=== PATIENT | male | born 1960 | race Caucasian/White ===

== ENCOUNTER 2017-10-05 08:32 | Outpatient (CLI) | payer OTHER ==
[~2017-10-05] VITALS: Ht 177.8 cm; Wt 122.5 kg
[2017-10-05] VITALS (11 sets, daily range): BP systolic 107–181; BP diastolic 65–92
[2017-10-05] MEDS ORDERED: IMDUR 30 MG TAB30 M1 PO (08:48)
[2017-10-05] MEDS ORDERED: AMLODIPINE BESY10 MG PO (08:49)
[2017-10-05] MEDS ORDERED: PLAVIX 75 MG TA75 M1 PO (08:50)
[2017-10-05] MEDS ORDERED: PRINIVIL20 MG PO (08:51)
[2017-10-05] MEDS ORDERED: PROTONIX40 M1 PO (08:53)
[2017-10-05] MEDS ORDERED: LIPITOR40 MG PO (08:54)
[2017-10-05] MEDS ORDERED: ALLOPURINOL 10100 M1 PO (08:54)
[2017-10-05] MEDS ORDERED: UNICOMPLEX M TA1 TA1 PO (08:55)
[2017-10-05] MEDS ORDERED: ASPIRIN325 PO (08:55)
[2017-10-05 09:11] LABS: HEMATOCRIT 44.2 % (42.0-52.0); HEMOGLOBIN 14.3 gm/dL (14.0-18.0); MCH 27.3 pg (26.0-34.0); MCHC 32.4 g/dL (28.0-37.0); MCV 84.3 fL (80.0-100.0); MPV 9.2 fl. (7.2-11.1); RBC 5.25 mil/uL (4.50-6.00); RDW-CV 15.2 % (10.5-14.5); WBC 4.6 thou/uL (4.0-11.0)
[2017-10-05 09:25] LABS: ANION GAP 7 mmol/L (7-16); BUN 17 mg/dL (7-18); CALCIUM 8.8 mg/dL (8.5-10.1); CHLORIDE 104 mmol/L (98-107); CO2 30 mmol/L (21-32); GLUCOSE 129 mg/dL (70-99); POTASSIUM 3.7 mmol/L (3.5-5.1); SODIUM 141 mmol/L (136-145)
[2017-10-05 09:28] LABS: PROTIME 10.2 Seconds (9.20-11.50)
[2017-10-05 09:29] LABS: ALBUMIN 3.6 g/dL (3.4-5.0); ALKALINE PHOSPHATASE 101 U/L (46-116); CHOLESTEROL 147 mg/dL (<200); HDL CHOLESTEROL 41 mg/dL (>40); LDL CHOLESTEROL 79 mg/dL (<100); SGOT 25 U/L (15-37); SGPT 39 U/L (30-65); TC:HDL 3.6 Ratio (Not establshd); TOTAL BILIRUBIN 0.7 mg/dL (<0.1-1.0); TOTAL PROTEIN 7.4 g/dL (6.4-8.2); TRIGLYCERIDE 136 mg/dL (<150); VLDL 27 mg/dL (<40)
[2017-10-05 09:32] LABS: SERUM ASSESSMENT Clear
--- NOTE | 2017-10-05 19:35 | EKG ---
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: [facility] : 1960 Requested By: Edi Leblanc Order Number: [id number] Celso MD: Oscar Thomas Measurements Intervals [place] Rate: 50 P: 28 OR: 197 QRS: 4 QRSD: 154 T: -42 QT: 447 QTc: 408 Interpretive Statements Sinus rhythm Right bundle branch block Inferior infarct, age indeterminate No previous ECG available for comparison Electronically Signed On 10-05-2017 19:35:45 CDT by Oscar Thomas [email or web address] <ELECTRONICALLY SIGNED> By: Oscar Thomas MD, [facility] 10/05/17 1935 0852 0852 Oscar Thomas MD, FACC /EPI
--- NOTE | 2017-10-10 11:54 | CARD ---
[address] [address] CARDIAC CATH REPORT Name: ROBB JOAQUIN Dhruv Room: [address]#: [id number] Admission: 10/05/17 Attend Phys: Edi Leblanc MD, Discharge: Date of : 60 Report #: [id number] THIS REPORT FOR: //name// APPROVED REPORT Study performed: 10/05/2017 10:14:08 Patient Details Patient Status: Out-Patient Room #: The patient is a 57 year-old male Event Personnel Edi Leblanc Armoring Machine Operator, Lexie Abbott Felt Hat Mellowing Machine Operator, Jose Domingo (R) Monitor, Mariah Schilling RTR Scrub Procedures Performed Left Heart Cath w Coronaries Indication Chest pain Risk Factors Obesity, Family History, Hypercholesterolemia, Hypertension Procedure Narrative The patient was brought electively to the Cardiac Catheterization Laboratory and was prepped and draped in a sterile manner. The right femoral was infiltrated with 2% Lidocaine subcutaneous anesthesia. A [place] 6 FR sheath was inserted into the Right Femoral Artery. Coronary angiography was performed using coronary diagnostic catheters. The right coronary system was accessed and visualized with a Diagnostic JR 4 catheter. The left coronary system was accessed and visualized with a Diagnostic JL 4 catheter. The left ventricle was accessed and visualized with a Diagnostic Straight Pigtail catheter. Left ventricular/Aortic Valve gradient assessed via catheter pullback. Pre-demployment femoral angiogram was performed . Closure device was deployed with a 6 Fr Mynx. The patient tolerated the procedure well and there were no complications associated with the procedure. There was no hematoma. Intraoperative Conscious Sedation Sedation start time: 11:08 Case end Time: 11:46 Fentanyl 25 mcg Versed 2 [place] [address] CARDIAC CATH REPORT Name: ROBB JOAQUIN Dhruv Room: [address]#: [id number] Admission: 10/05/17 Attend Phys: Edi Leblanc MD, Discharge: Date of : 60 Report #: [id number] Fluoro Time: 3.2 minutes Dose: DAP 10.237 cGycm2 562 mGy Contrast Type and Amount: Visipaque 145 ml Coronary Angiography The patient's coronary anatomy is right dominant. Diagnostic Cath Left Main 0% narrowing LAD 30% mid vessel narrowing with 40% proximal first diagonal narrowing Circumflex 40% narrowing of the midportion of the first marginal branch of the nondominant circumflex Right Coronary 30% mid vessel narrowing with widely patent mid and distal right coronary stents Left Ventriculography The left ventricle is normal in size with contractility. The left ventricular ejection fraction is estimated to be 45%. Left ventricular wall motion abnormalities are present. There is no mitral insufficiency. Inferobasilar akinesis is noted Hemodynamics The aortic pressure is 148/67 mmHg with a mean of 93 mmHg. The left ventricular pressure is 153/1 mmHg with a mean of mmHg. The left ventricular end diastolic pressure is 15 mmHg. Conclusion #1 moderate atherosclerotic coronary artery disease characterized by the following: A 30% mid LAD narrowing with 40% proximal first diagonal narrowing B nondominant circumflex with 40% mid first marginal narrowing C dominant right coronary artery 30% mid vessel narrowing and widely patent mid and distal right coronary stents #2 mild impairment in global left ventricular systolic function, estimated ejection fraction of 45% with inferobasilar akinesis #3 normal left-sided hemodynamics study Recommendations Aggressive [place] [address] CARDIAC CATH REPORT Name: ROBB JOAQUIN Room: [address] M..#: [id number] Admission: 10/05/17 Attend Phys: Edi Leblanc MD, Discharge: Date of : 60 Report #: [id number] Weight Loss Reduction Program Diagnostic Cath Approved by: Edi Leblanc MD Date/Time: 10/10/17 and 1153 hrs. <ELECTRONICALLY SIGNED> By: Edi Leblanc MD, [facility] 10/10/17 1154 1154 1154Jocarloz Leblanc MD, FAC /INF
== END 2017-10-05 16:55 | disposition home or self-care (01) ==
LOC: M.CL 08:32 → M.TBA-CV 08:32 → M.CL 10:30 → M.TBA-CV 13:19 → M.CL 16:55
PROVIDERS: Internal Medicine
DX: I25.10 Atherosclerotic heart disease of native coronary artery without angina pectoris (principal); I25.5 Ischemic cardiomyopathy; I10 Essential (primary) hypertension; E78.00 Pure hypercholesterolemia, unspecified; E66.09 Other obesity due to excess calories; Z82.49 Family history of ischemic heart disease and other diseases of the circulatory system; Z79.899 Other long term (current) drug therapy; Z79.82 Long term (current) use of aspirin

== ENCOUNTER 2018-08-01 11:50 | Inpatient (IN) | payer OTHER ==
[~2018-08-01] VITALS: Ht 177.8 cm; Wt 118.8 kg
[~2018-08-01 11:50] MED LIST: ALLOPURINOL 10100 M1 PO; AMLODIPINE BESY10 MG PO; ASPIRIN325 PO; IMDUR 30 MG TAB30 M1 PO; LIPITOR40 MG PO; PLAVIX 75 MG TA75 M1 PO; PRINIVIL20 MG PO; PROTONIX40 M1 PO; UNICOMPLEX M TA1 TA1 PO
[2018-08-01] MEDS ORDERED: ALEVE220 MG PO (14:48)
[2018-08-01 16:00] VITALS: BP 123/63
[2018-08-01 17:27] LABS: CHOLESTEROL 142 mg/dL (<200); HDL CHOLESTEROL 41 mg/dL (>40); LDL CHOLESTEROL 82 mg/dL (<100); TC:HDL 3.5 Ratio (Not establshd); TRIGLYCERIDE 97 mg/dL (<150); VLDL 19 mg/dL (<40)
[2018-08-01 17:28] LABS: SERUM ASSESSMENT Clear
--- NOTE | 2018-08-01 17:29 | NUR ---
VSS, ASSUMED CARE OF PT FROM ER, ASSESSMESNT PERFORMED AND CHARTED, FALL PRECAUTIONS IN PLACE AND CALL LIGHT IN REACH, PT IS A&O4 AND UP AD MAYRA AND STATES PAIN IN LEFT CHEST, PT SAYS ITS 3 OUT OF 10, HE WAS TRACING AFIB ON MONITOR BUT NOW HAS CONVERTED TO SR AND I STOPPED CARDIZEM DRIP, PT GOAL IS TO REMAIN IN SR AND HAVE NO CHEST PAIN, WILL FOLLOW WITH PLAN OF CARE
[2018-08-01 19:00] VITALS: BP 136/70
[2018-08-01 23:59] VITALS: BP 136/68
[2018-08-02] VITALS (13 sets, daily range): BP systolic 104–167; BP diastolic 53–84
--- NOTE | 2018-08-02 06:36 | NUR ---
APPROX 0000 PT TROP LEVEL CRITICAL, PROVIDER NOTIFIED AND ORDERS RECIEVED. PT DENIES CHEST PAIN, NITRO HELD FOR DENIAL OF CHEST PAIN. SEE MAR. SEE CHARTING. VITALS WNL. HOURLY ROUNDING FOR SAFETY.
[2018-08-02 07:27] LABS: URINE BILIRUBIN NEGATIVE (Negative); URINE BLOOD NEGATIVE (Negative); URINE CLARITY CLEAR; URINE COLOR YELLOW; URINE GLUCOSE-RANDOM NEGATIVE (Negative); URINE KETONES TRACE (Negative); URINE LEUKOCYTES-REFLEX NEGATIVE (Negative); URINE NITRITE-REFLEX NEGATIVE (Negative); URINE PROTEIN TRACE (Negative); URINE SPECIFIC GRAVITY >= 1.030 (1.005-1.030); URINE UROBILINOGEN 0.2 E.U./dl (0.2-1.0)
--- NOTE | 2018-08-02 11:13 | NUR ---
MET WITH PT AND HIS MOTHER/ROSAMARIA TO DISCUSS HOME SITUATION/DC PLANNING. PT LIVES WITH MOTHER IN [place]. HE IS INDEPENDENT WITH ADLS, USES NO EQUIPMENT AND IS UNINSURED. HE DOES HAVE A DR THAT HE SEE, DR TRAN. PT STATES HE HAS BEEN ABLE TO AFFORD HIS MEDS SO FAR. GAVE COMMUNITY RESOURCES AND MADE AWARE [facility] WOULD BE CONTACTING HIM RE: FINANCIAL SCREEN AND ASSIST. PT DENIES OTHER DC NEEDS
[2018-08-02 11:16] LABS: HEMATOCRIT 38.6 % (42.0-52.0); HEMOGLOBIN 12.7 gm/dL (14.0-18.0); MCH 28.6 pg (26.0-34.0); MCHC 32.8 g/dL (28.0-37.0); MCV 87.1 fL (80.0-100.0); MPV 8.4 fl. (7.2-11.1); RBC 4.43 mil/uL (4.50-6.00); RDW-CV 14.6 % (10.5-14.5); WBC 4.2 thou/uL (4.0-11.0)
[2018-08-02 11:25] LABS: APTT 27.6 Seconds (25.0-31.3); INR 1.1; PROTIME 11.1 Seconds (9.20-11.50)
[2018-08-02 11:26] LABS: CALCIUM 8.3 mg/dL (8.5-10.1); CREATININE 1.1 mg/dL (0.6-1.3); POTASSIUM 3.4 mmol/L (3.5-5.1)
--- NOTE | 2018-08-02 12:45 | EKG ---
[place] [address] ELECTROCARDIOGRAM REPORT Name: ROBB JOAQUIN Room: [address] ADM IN ..#: [id number] Admission: 08/01/18 Attend Phys: Paul Mosqueda Discharge: Date of : 60 Report #: [id number] THIS REPORT FOR: //name// [facility] Test Date: 2018-08-01 Test Time: 16:27:28 Pat Name: ROBB JOAQUIN Department: Room: [address] Gender: M Gastroenterology Nurse: : 1960 Requested By: Doc Almodovar Order Number: [id number] Celso MD: Edi Leblanc Measurements Intervals [place] Rate: 46 P: 25 DC: 197 QRS: 8 QRSD: 114 T: 174 QT: 463 QTc: 405 Interpretive Statements Sinus bradycardia LVH with IVCD and secondary repol abnrm Inferior infarct, old Compared to ECG 10/05/2017 08:52:42 Intraventricular conduction delay now present Left ventricular hypertrophy now present Early repolarization now present Right bundle-branch block no longer present Myocardial infarct finding still present Electronically Signed On 08-02-2018 12:45:08 CDT by Edi Leblanc [email or web address] <ELECTRONICALLY SIGNED> By: Edi Leblanc MD, [facility] 08/02/18 1245 1627 1627 Edi Leblanc MD, FAC /EPI
--- NOTE | 2018-08-02 12:47 | EKG ---
[place] [address] ELECTROCARDIOGRAM REPORT Name: ROBB JOAQUIN Room: [address] ADM IN [facility].#: [id number] Admission: 08/01/18 Attend Phys: Paul Mosqueda Discharge: Date of : 60 Report #: [id number] THIS REPORT FOR: //name// [facility] Test Date: 2018-08-02 Test Time: 00:47:25 Pat Name: ROBB JOAQUIN Department: Room: [address] Gender: M Dimension Mill Worker: GILLES : 1960 Requested By: Ny Alan Order Number: [id number] Celso MD: Edi Leblanc Measurements Intervals [place] Rate: 46 P: 37 ND: 196 QRS: 11 QRSD: 121 T: 162 QT: 518 QTc: 454 Interpretive Statements Sinus bradycardia Nonspecific intraventricular conduction delay Inferior infarct, old Abnrm T, consider ischemia, anterolateral lds Compared to ECG 10/05/2017 08:52:42 Intraventricular conduction delay now present Possible ischemia now present Right bundle-branch block no longer present Myocardial infarct finding still present Electronically Signed On 08-02-2018 12:46:59 CDT by Edi Leblanc [email or web address] <ELECTRONICALLY SIGNED> By: Edi Leblanc MD, [facility] 08/02/18 1246 0047 0047 Edi Leblanc MD, FAC /EPI
[2018-08-02 13:07] LABS: GLYCOHEMOGLOBIN (HGB A1C) 6.3 % (4.8-5.6)
--- NOTE | 2018-08-02 14:45 | 2DMMODE ---
[place] [address] 2 D/M-MODE ECHOCARDIOGRAM Name: ROBB JOAQUIN Room: [address] IN [facility]#: [id number] Admission: 08/01/18 Attend Phys: Doc Almodovar Discharge: Date of : 60 Date of Service: 08/02/18 1445 Report #: [id number] THIS REPORT FOR: //name// APPROVED REPORT Study performed: 08/02/2018 10:24:35 EXAM: Comprehensive 2D, Doppler, and color-flow Echocardiogram Patient Location: In-Patient Room #: [facility] Status: routine BSA: 2.34 HR: 54 bpm BP: 162/83 mmHg Rhythm: NSR Other Information Study Quality: Good Indications Atrial Fibrillation Chest Pain 2D Dimensions IVSd: 14.15 (7-11mm) LVOT Diam: 20.96 (18-24mm) LVDd: 55.50 mm PWd: 13.02 (7-11mm) Ascending Ao: 33.04 (22-36mm) LVDs: 42.24 (25-40mm) Aortic Root: 34.08 mm Volumes Left Atrial Volume (Systole) LA ESV Index: 37.90 mL/m2 Aortic Valve AoV Peak Herb.: 1.62 m/s AO Peak Gr.: 10.45 mmHg LVOT Max P.80 mmHg AO Mean Gr.: 6.02 mmHg LVOT Mean P.40 mmHg LVOT Max V: 1.10 m/s AO V2 VTI: 37.97 cm LVOT Mean V: 0.71 m/s ERNESTO (VTI): 2.56 cm2 LVOT V1 VTI: 28.15 cm Mitral Valve E/A Ratio: 1.91 MV Decel. Time: 219.63 [place] [address] 2 D/M-MODE ECHOCARDIOGRAM Name: ROBB JOAQUIN Room: [address] IN [facility]#: [id number] Admission: 08/01/18 Attend Phys: Doc Almodovar Discharge: Date of : 60 Date of Service: 08/02/18 1445 Report #: [id number] MV E Max Herb.: 0.95 m/s MV PHT: 63.69 ms MVA (PHT): 3.45 cm2 TDI E/Lateral E': 9.50 E/Medial E': 11.88 Medial E' Herb.: 0.08 m/s Lateral E' Herb.: 0.10 m/s Pulmonary Valve PV Peak Herb.: 1.04 m/s PV Peak Gr.: 4.32 mmHg Left Ventricle The left ventricle is normal size. There is normal LV segmental wall motion. Mild to moderate concentric left ventricular hypertrophy. Left ventricular systolic function is normal. The left ventricular ejection fraction is within the normal range. LVEF is 50-55%. The left ventricular diastolic function is normal. Right Ventricle The right ventricle is normal size. The right ventricular systolic function is normal. Atria Left atrium is mildly dilated. The right atrium size is normal. Aortic Valve Mild aortic valve sclerosis. Trace aortic regurgitation. There is no aortic valvular stenosis. Mitral Valve The mitral valve is normal in structure. Trace mitral regurgitation. No evidence of mitral valve stenosis. Tricuspid Valve The tricuspid valve is normal in structure. Trace tricuspid regurgitation. Unable to assess PA pressure. Pulmonic Valve The pulmonary valve is normal in structure. Trace pulmonic regurgitation. Great Vessels The aortic root is normal in size. [place] [address] 2 D/M-MODE ECHOCARDIOGRAM Name: ROBB JOAQUIN Room: [address]#: [id number] Admission: 08/01/18 Attend Phys: Doc Almodovar Discharge: Date of : 60 Date of Service: 08/02/18 1445 Report #: [id number] Pericardium There is no pericardial effusion. <Conclusion> The left ventricle is normal size. Mild to moderate concentric left ventricular hypertrophy. Left ventricular systolic function is normal. The left ventricular ejection fraction is within the normal range. LVEF is 50-55%. The left ventricular diastolic function is normal. The right ventricle is normal size. Left atrium is mildly dilated. Mild aortic valve sclerosis. Trace aortic regurgitation. There is no aortic valvular stenosis. The mitral valve is normal in structure. Trace mitral regurgitation. The tricuspid valve is normal in structure. There is no pericardial effusion. There is normal LV segmental wall motion. <ELECTRONICALLY SIGNED> By: Edi Leblanc MD, [facility] 08/02/18 1445 1445 1445 Edi Leblanc MD, FACC /INF
--- NOTE | 2018-08-02 17:38 | EKG ---
[place] [address] ELECTROCARDIOGRAM REPORT Name: ROBB JOAQUIN Room: [address] ADM IN [facility].#: [id number] Admission: 08/01/18 Attend Phys: Paul Mosqueda Discharge: Date of : 60 Report #: [id number] THIS REPORT FOR: //name// [facility] Test Date: 2018-08-02 Test Time: 16:52:48 Pat Name: ROBB JOAQUIN Department: Room: [address] Gender: M Mallet Cutter: : 1960 Requested By: Edi Leblanc Order Number: [id number] Celso MD: Oscar Thomas Measurements Intervals [place] Rate: 47 P: 26 MN: 182 QRS: 9 QRSD: 120 T: 159 QT: 526 QTc: 465 Interpretive Statements Sinus bradycardia Probable LVH with secondary repol abnrm Inferior infarct, old Compared to ECG 08/02/2018 00:47:25 Intraventricular conduction delay no longer present Possible ischemia no longer present Myocardial infarct finding still present Electronically Signed On 08-02-2018 17:38:38 CDT by Oscar Thomas [email or web address] <ELECTRONICALLY SIGNED> By: Oscar Thomas MD, FACC 08/02/18 1738 1652 1652 Oscar Thomas MD, [facility] /EPI
--- NOTE | 2018-08-02 19:47 | NUR ---
RECEIVED REPORT. ASSUMED CARE OF PT AROUND 0730. PT A&O X4. VSS, PT BRADYCARDIC BUT ASYMPTOMATIC WITH BRADYCARDIA, PT STATES "40'S IS MY NORMAL". TEAM ASSEMBLER IN PLACE TRACING SB WITH NO CHANGES THIS SHIFT. AM ASSESSMENT AND VITALS COMPLETED CHARTED. IV INTACT AND INFUSING IVF. PT WENT FOR CARDIAC CATH AROUND 1445 AND RETURNED TO UNIT AROUND 1645. RIGHT GROIN SITE OOZING SMALL AMOUNT OF BLOOD INITIALLY, PRESSURE APPLIED. DR ARCE ACCESSED PT, NO NEW ORDEERS RECEIVED. POST CATH VITALS CHARTED. PT COMPLAINING OF RIGHT SHOULDER PAIN POST CATH. EKG OBTAINED, SR. CARDIOLOGY NOTIFIED, WAITING FOR CALL BACK. PT REFUSING MEDICATION FOR PAIN. PT NOT CLAMMY OR SWEATY. VSS. PT'S MOTHER AT BEDSIDE MOST OF SHIFT. PT TOLERATING DIET THIS EVENING, MOTHER ASSISTED WITH MEAL. PRABHAKAR IN PLACE UNTIL PT ABLE TO GET UP FROM POST CATH INSTRUCTED IMMOBILIZATION - ABLE TO GET UP AROUND 1030. URINE LIGHT YELLOW. PT CURRENTLY RESTING IN BED WATCHING TV. FALL PRECAUTIONS IN PLACE. CALL LIGHT IS WITHIN REACH. HOURLY ROUNDING PERFORMED.
[2018-08-03] VITALS (7 sets, daily range): BP systolic 157–170; BP diastolic 82–88
--- NOTE | 2018-08-03 04:55 | NUR ---
ASSUMED PT CARE AT 1915. PT ON BEDREST POST CARDIAC CATH. RIGHT GROIN SITE DRESSING MINIMAL SEROSANGUENEOUS DRAINAGE. PT C/O PAIN TO RIGHT SHOULDER. PRN PAIN MED ADMINSTERED AND PARTIALLY EFFECTIVE. OFF OF BEDREST AT 0. HOURLY ROUNDING COMPLETED. CALL LIGHT WITHIN REACH. DENIES CHEST PAIN THIS SHIFT.
[2018-08-03 05:11] LABS: HEMOGLOBIN 13.9 gm/dL (14.0-18.0); MCH 28.9 pg (26.0-34.0); MCV 87.4 fL (80.0-100.0); MPV 9.1 fl. (7.2-11.1); RBC 4.81 mil/uL (4.50-6.00); RDW-CV 14.7 % (10.5-14.5); WBC 8.3 thou/uL (4.0-11.0)
[2018-08-03 05:59] LABS: ALBUMIN 3.5 g/dL (3.4-5.0); CALCIUM 9.1 mg/dL (8.5-10.1); CREATININE 1.1 mg/dL (0.6-1.3); POTASSIUM 3.8 mmol/L (3.5-5.1); TOTAL BILIRUBIN 0.9 mg/dL (<0.1-1.0); TOTAL PROTEIN 7.3 g/dL (6.4-8.2)
[2018-08-03 06:08] LABS: TROPONIN-I LEVEL 0.75 ng/mL (<0.06)
--- NOTE | 2018-08-03 12:00 | NUR ---
VSS, ASSUMED CARE IN THE AM, ASSESSMENT PERFORMED AND CHARTED, FALL PRECAUTIONS IN PLACE AND CALL LIGHT IN REACH, PT IS A&O4, ON RA, UP ADLIB, DENIES ANY PAIN, TRACING SB ON THE MONITOR, PT CATH SIDE RIGHT GROIN IS C/D/I, PT GOAL IS TO HAVE NO CARDIO COMPLICATIONS, AT THIS TIME I HAVE RECIEVED DISCHARGE INSTRUCTIONS, I TOOK IV AND TELE MONITOR OFF, PT WAS GIVEN DISCHARGE INSTRUCTIONS AND MEDICATION SCRIPTS, PT DENIES ANY QUESTIONS AT TIME OF D/C HE HAS GATHERED ALL BELONGINGS AND WAS TAKEN OUT VIA WHEEL CHAIR TO CAR WITH FAMILY AND STAFF, LEEANN DE OLIVEIRA WITH PLAN OF CARE, HOURLY ROUNDS COMPLETED.
--- NOTE | 2018-08-03 12:52 | EKG ---
[place] [address] ELECTROCARDIOGRAM REPORT Name: ROBB JOAQUIN Room: [address] ADM IN [facility].#: [id number] Admission: 08/01/18 Attend Phys: Paul Mosqueda Discharge: Date of : 60 Report #: [id number] THIS REPORT FOR: //name// [facility] Test Date: 2018-08-02 Test Time: 18:42:53 Pat Name: ROBB JOAQUIN Department: Room: [address] Gender: M Technical Operator: CCD : 1960 Requested By: Edi Leblanc Order Number: [id number] Celso MD: Oscar Thomas Measurements Intervals [place] Rate: 55 P: 26 NC: 188 QRS: 7 QRSD: 121 T: 151 QT: 464 QTc: 444 Interpretive Statements Incomplete analysis due to missing data in precordial lead(s) Sinus rhythm LVH with IVCD and secondary repol abnrm Inferior infarct, old Missing lead(s): V2 Compared to ECG 08/02/2018 16:52:48 Intraventricular conduction delay now present Sinus bradycardia no longer present Myocardial infarct finding still present Electronically Signed On 08-03-2018 12:52:44 CDT by Oscar Thomas [email or web address] <ELECTRONICALLY SIGNED> By: Oscar Thomas MD, FAC 08/03/18 1252 41 41 Oscar Thomas MD, [facility] /EPI
--- NOTE | 2018-08-03 12:56 | EKG ---
[place] [address] ELECTROCARDIOGRAM REPORT Name: ROBB JOAQUIN Dhruv Room: [address] ADM IN ..#: [id number] Admission: 08/01/18 Attend Phys: Paul Mosqueda Discharge: Date of : 60 Report #: [id number] THIS REPORT FOR: //name// [facility] Test Date: 2018-08-03 Test Time: 05:20:55 Pat Name: ROBB JOAQUIN Department: Room: [address] Gender: M Licensed Mental Health Counselor: : 1960 Requested By: Edi Leblanc Order Number: [id number] Celso MD: Oscar Thomas Measurements Intervals [place] Rate: 47 P: 27 [place]: 195 QRS: 6 QRSD: 120 T: 164 QT: 508 QTc: 450 Interpretive Statements Sinus bradycardia Probable LVH with secondary repol abnrm Inferior infarct, old Compared to ECG 08/02/2018 16:52:48 No significant changes Electronically Signed On 08-03-2018 12:56:36 CDT by Oscar Thomas [email or web address] <ELECTRONICALLY SIGNED> By: Oscar Thomas MD, FACC 08/03/18 1256 0520 Oscar Thomas MD, [facility] /EPI
[2018-08-03] MEDS ORDERED: LISINOPRIL20 MG PO (13:11)
[2018-08-03] MEDS ORDERED: ASPIR 8181 MG PO (13:11)
--- NOTE | 2018-08-03 15:26 | CARD ---
[address] [address] CARDIAC CATH REPORT Name: ROBB JOAQUIN Room: [address] IN [facility]#: [id number] Admission: 08/01/18 Attend Phys: Paul Mosqueda Discharge: 08/03/18 Date of : 60 Report #: [id number] THIS REPORT FOR: //name// APPROVED REPORT Study performed: 08/02/2018 14:43:54 Patient Details Patient Status: In-Patient Room #: 225 The patient is a 58 year-old male Event Personnel Edi Leblanc Quality Assurance Lead, Mary Long RN Stripping Cutter And Winder, Jose Domingo (R) Monitor, Uche Hearn OYSTER PLANTER Scrub Procedures Performed EDITH Place w/wo Plasty Single DIAG; left heart catheterization left ventriculography and selective coronary arteriography Indication Non-STEMI Risk Factors Obesity, Hypercholesterolemia, Hypertension Previous Procedures/Diagnoses Previous PCI, Previous MT Admission/Lab Medications/Medications given during procedure Aspirin, Platelet Aff. Inhib., Angiomax bolus and infusion Procedure Narrative The patient was brought electively to the Cardiac Catheterization Laboratory and was prepped and draped in a sterile manner. The right femoral was infiltrated with 2% Lidocaine subcutaneous anesthesia. A [place] 6 FR sheath was inserted into the right femoral artery. Coronary angiography was performed using coronary diagnostic catheters. The right coronary system was accessed and visualized with a Diagnostic JR 4 catheter. The left coronary system was accessed and visualized with a Diagnostic JL 4 catheter. The left ventricle was accessed and visualized with a Diagnostic Straight Pigtail catheter. Left ventricular/Aortic Valve gradient assessed via catheter pullback. Left ventriculogram was [place] [address] CARDIAC CATH REPORT Name: ROBB JOAQUIN Room: [address]#: [id number] Admission: 08/01/18 Attend Phys: Paul Mosqueda Discharge: 08/03/18 Date of : 60 Report #: [id number] Pre-demployment femoral angiogram was performed . Closure device was deployed with a Fr Angioseal STS 6Fr. The patient tolerated the procedure well and there were no complications associated with the procedure. There was no hematoma. Intraoperative Conscious Sedation Sedation start time: 14:59 Case end Time: 16:13 Fentanyl 75 mcg Versed 2 mg Fluoro Time: 18.2 minutes Dose: DAP 156812 cGycm2 3132 mGy Contrast Type and Amount: Visipaque 450 ml Coronary Angiography The patient's coronary anatomy is right dominant. Diagnostic Cath Left Main 0% narrowing LAD Tandem 40% mid LAD narrowings with 80-90% tubular proximal first diagonal stenosis Circumflex 30% narrowing of the proximal portion of the prominent first marginal branch of the nondominant circumflex Right Coronary Dominant vessel with 30% mid vessel narrowing and 60% distal in-stent narrowing Left Ventriculography The left ventricle is normal in size with contractility. The left ventricular ejection fraction is estimated to be 50%. Left ventricular wall motion abnormalities are present. There is no mitral insufficiency. Inferobasilar akinesis is noted Hemodynamics The aortic pressure is 203/90 mmHg with a mean of 132 mmHg. The left ventricular pressure is 203/10 mmHg with a mean of mmHg. The left ventricular end diastolic pressure is 31 mmHg. There was no gradient across the aortic valve upon pullback. PCI Technique Lesion Anticoagulation was achieved with Angiomax. Patient was preloaded with Angiomax IV 18 ml. Percutaneous coronary intervention was performed on the first diagnonal branch segment. The lesion stenosis prior to intervention was 90% with ROSENDA 3 flow. A 6FR XB 3.5 100CM Guide Catheter was used to engage the ostium. A IG: ProwaterFlex 180CM Interventional Guidewire [place] [address] CARDIAC CATH REPORT Name: ROBB JOAQUIN Room: [address]#: [id number] Admission: 08/01/18 Attend Phys: Paul Mosqueda Discharge: 08/03/18 Date of : 60 Report #: [id number] BALLOON DILATION A Balloon catheter Mini Trek RX 2.0 X 15 was inserted and inflated up to 14.00atm for 16seconds. STENT DEPLOYMENT A drug-eluting stent Mcallister RX Stent 2.0X22mm, 2.0x15 was inserted and inflated up to 14.00, 8atm for 14seconds. Additional Inflation: 15.00atm for 12seconds. Final angiography reveals 0 % stenosis with ROSENDA 3 flow. COMMENTS There was transient slow flow in the distal first diagonal after the initial stent deployment which was corrected by covering the distal edge of the stent and beyond with a second drug-eluting stent. STENT DEPLOYMENT A drug-eluting stent Lb RX Stent 2.0X15mm was inserted and inflated up to 8.00atm for 11seconds. Additional Inflation: 8.00atm for 9seconds. Additional Inflation: 10.00atm for 7seconds. Conclusion #1 significant coronary artery disease characterized by the following: A tandem 40% mid LAD narrowings with 80-90% tubular first diagonal stenosis B 30% narrowing in the proximal portion of the first marginal branch of the circumflex C dominant right coronary artery with 30% mid vessel narrowing and 60% distal in-stent narrowing #2 mild reduction in global left ventricular systolic function, estimated ejection fraction being 50% with inferobasilar akinesis 3 significant systolic hypertension with significant elevation of left ventricular end-diastolic pressure at rest #4 successful percutaneous coronary intervention with deployment of sequential drug-eluting stents at the site of 80-90 % tubular first diagonal stenosis with 0% residual narrowing and ROSENDA-3 flow [place] [address] CARDIAC CATH REPORT Name: ROBB JOAQUIN Room: [address]#: [id number] Admission: 08/01/18 Attend Phys: Paul Mosqueda Discharge: 08/03/18 Date of : 60 Report #: [id number] Recommendations Daily ASA with Plavix for at least one year Cardiac Risk Reduction Program Aggressive Medical Therapy Medications Administered Aspirin (any) Clopidogrel Diagnostic Cath Approved by: Edi Leblanc MD Date/Time: 08/03/2018 15:25:13 <ELECTRONICALLY SIGNED> By: Edi Leblanc MD, FACC 08/03/18 1526 1526 [email or web address] Leblanc MD, FACC /INF
== END 2018-08-03 14:47 | disposition home or self-care (01) | DRG 247 ==
LOC: M.TBA 11:50 → M.2W 13:27
PROVIDERS: Internal Medicine; Registered Nurse; ADMIT Internal Medicine
PROC: 4A023N7 Measurement of Cardiac Sampling and Pressure, Left Heart, Percutaneous Approach (ICD-10-PCS; principal; 2018-08-01)
PROC: B2111ZZ Fluoroscopy of Multiple Coronary Arteries using Low Osmolar Contrast (ICD-10-PCS; principal; 2018-08-01)
PROC: 027035Z Dilation of Coronary Artery, One Artery with Two Drug-eluting Intraluminal Devices, Percutaneous Approach (ICD-10-PCS; principal; 2018-08-01)
PROC: B2151ZZ Fluoroscopy of Left Heart using Low Osmolar Contrast (ICD-10-PCS; principal; 2018-08-01)
PROC: B41G1ZZ Fluoroscopy of Left Lower Extremity Arteries using Low Osmolar Contrast (ICD-10-PCS; principal; 2018-08-01)
DX: I21.4 Non-ST elevation (NSTEMI) myocardial infarction (principal); E78.00 Pure hypercholesterolemia, unspecified; I10 Essential (primary) hypertension; E66.9 Obesity, unspecified; I25.10 Atherosclerotic heart disease of native coronary artery without angina pectoris; I48.91 Unspecified atrial fibrillation; Z96.652 Presence of left artificial knee joint; Z68.37 Body mass index [BMI] 37.0-37.9, adult; Z82.49 Family history of ischemic heart disease and other diseases of the circulatory system; Z79.01 Long term (current) use of anticoagulants; Z79.82 Long term (current) use of aspirin; Z79.899 Other long term (current) drug therapy; Z95.5 Presence of coronary angioplasty implant and graft; Z90.49 Acquired absence of other specified parts of digestive tract; I25.2 Old myocardial infarction

== ENCOUNTER 2019-07-21 19:10 | Inpatient (IN) | payer OTHER, MEDICAID ==
[~2019-07-21] VITALS: Ht 177.8 cm; Wt 126.8 kg
[~2019-07-21 19:10] MED LIST changes: +ALEVE220 MG PO; +ASPIR 8181 MG PO; +LISINOPRIL20 MG PO
[2019-07-21 19:16] VITALS: BP 137/113
[2019-07-21 20:39] VITALS: BP 125/82
[2019-07-21 20:53] VITALS: BP 124/86
[2019-07-22] VITALS (9 sets, daily range): BP systolic 122–181; BP diastolic 56–95
--- NOTE | 2019-07-22 10:19 | EKG ---
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 : 1960 Requested By: Alyssa Alvarez Order Number: [id number] Reading MD: Michael Cornejo Measurements Intervals [place] Rate: 125 P: PA: QRS: 13 QRSD: 126 T: -40 QT: 356 QTc: 514 Interpretive Statements Atrial fibrillation Nonspecific intraventricular conduction delay Borderline repolarization abnormality Baseline wander in lead(s) V5 Compared to ECG 08/03/2018 05:20:55 Sinus bradycardia no longer present Electronically Signed On 07-22-2019 10:17:36 CDT by Michael Cornejo [email or web address] <ELECTRONICALLY SIGNED> By: Michael Cornejo MD, [facility] 07/22/19 1017 15 15 Michael Cornejo MD, [facility] /EPI
--- NOTE | 2019-07-22 10:27 | EKG ---
[place] [address] ELECTROCARDIOGRAM REPORT Name: ROBB JOAQUIN Room: [address] IN [facility]#: [id number] Admission: 07/21/19 Attend Phys: Alyssa barrientos Sa Discharge: Date of : 60 Date of Service: 07/22/19 0639 Report #: [id number] THIS REPORT FOR: //name// [facility] Test Date: 2019-07-22 Test Time: 06:39:47 Pat Name: ROBB JOAQUIN Department: Room: [address] Gender: M Tattooer: JONNY : 1960 Requested By: Oscar Thomas Order Number: [id number] Celso MD: Michael Cornejo Measurements Intervals [place] Rate: 40 P: 37 ME: 210 QRS: 28 QRSD: 122 T: 163 QT: 523 QTc: 427 Interpretive Statements Sinus bradycardia Nonspecific intraventricular conduction delay Inferior infarct, old Abnrm T, consider ischemia, anterolateral lds Electronically Signed On 07-22-2019 10:25:35 CDT by Michael Cornejo [email or web address] <ELECTRONICALLY SIGNED> By: Michael Cornejo MD, [facility] 07/22/19 1025 0639 0639 Michael Cornejo MD, [facility] /EPI
[2019-07-22] MEDS ORDERED: LISINOPRIL40 MG PO (10:32)
[2019-07-22 12:26] LABS: ABSOLUTE EOSINOPHILS 0.1 thou/uL (0.0-0.7); ABSOLUTE LYMPHOCYTES 1.4 thou/uL (0.8-5.3); ABSOLUTE MONOCYTES 0.3 thou/uL (0.0-1.2); ABSOLUTE NEUTROPHILS 3.1 thou/uL (1.6-8.1); BASOPHILS 0.5 %; EOSINOPHILS 1.9 %; HEMATOCRIT 43.1 % (42.0-52.0); HEMOGLOBIN 14.3 gm/dL (14.0-18.0); LYMPHOCYTES 28.4 %; MCH 27.4 pg (26.0-34.0); MCHC 33.1 g/dL (28.0-37.0); MCV 82.9 fL (80.0-100.0); MONOCYTES 6.4 %; MPV 8.9 fl. (7.2-11.1); NUCLEATED RBCS 0 /100WBC; PLATELET COUNT* 146 thou/uL (150-400); POLYS 62.8 %; RDW-CV 16.4 % (10.5-14.5)
[2019-07-22 12:36] LABS: CALCIUM 8.9 mg/dL (8.5-10.1); CREATININE 1.3 mg/dL (0.6-1.3); PHOSPHORUS* 3.5 mg/dL (2.5-4.9); POTASSIUM 4.1 mmol/L (3.5-5.1)
--- NOTE | 2019-07-22 16:03 | CON ---
[address] [address] CONSULTATION Name: ROBB JOAQUIN Room: [address] IN .R.#: [id number] Admission: 07/21/19 Attend Phys: Alyssa Rodriges Discharge: Date of : 60 Report #: [id number] THIS REPORT FOR: //name// cc: AYDEN Barnett family physician/PCP AYDEN Barnett family physician/PCP ~ THIS REPORT FOR: //name// CC: AYDEN physician/PCP Alyssa Syed MD DATE OF SERVICE: 07/22/2019 CARDIOLOGY CONSULTATION HISTORY OF PRESENT ILLNESS: The patient is a 59-year-old single white male who came to the Emergency Room yesterday complaining of palpitations. The patient has an extensive past medical history. He apparently presented in 11/2014 with acute inferior STEMI. He was seen by Dr. Leblanc and had 2 stents placed. He returned a month later and had 3 additional coronary stents placed. He apparently presented a year ago in 07/2018 with atrial fibrillation. He was seen at that time by Dr. Leblanc. He had a repeat cardiac catheterization on 08/02/2018 from the right femoral artery. At that time, the LAD had an 80% stenosis. The circumflex had only 30% stenosis. The right coronary artery has 60% in-stent restenosis. Ejection fraction of 50%. He was given Angiomax and Dr. Leblanc then placed a new drug-eluting stent. He had a stent placed in the diagonal artery. He has done well since that time, was placed on Plavix. He saw Dr. Leblanc in November. He stays fairly active. Denies any recent chest pain. However, he awakened yesterday with his heart beating irregular, felt somewhat short of breath. He went to the Emergency Room in [place], [place]. He was found to be in atrial fibrillation. He was transferred here to [place] by ambulance. He is admitted for further evaluation and treatment. He denies any recent fever or cough, swelling of his feet. PAST MEDICAL HISTORY: He has had a knee replacement, cholecystectomy. He has a history of hyperlipidemia. MEDICATIONS: Include allopurinol for gout, aspirin, Lipitor, Plavix, lisinopril, Protonix. ALLERGIES: He has no known drug allergies. FAMILY HISTORY: His father had heart disease. SOCIAL HISTORY: He is , lives with his mother in [place], [place]. He is on disability for back pain. 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 [address] CONSULTATION Name: ROBB JOAQUIN Dhruv Room: [address] IN [facility]#: [id number] Admission: 07/21/19 Attend Phys: Alyssa Rodriges Discharge: Date of : 60 Report #: [id number] history of alcohol abuse. REVIEW OF SYSTEMS: He has had no history of stroke. He does snore at night. No history of asthma, liver disease, kidney disease, cancer, psychiatric illness, chronic skin condition. PHYSICAL EXAMINATION: GENERAL: Revealed a middle-aged male, lying in bed, appeared in no distress. VITAL SIGNS: Blood pressure 130/70, pulse is 50. He is afebrile. HEENT: He was anicteric. Conjunctivae are pink. Mucous membranes moist. NECK: Veins nondistended. No carotid bruits. CHEST: Clear to auscultation. CARDIOVASCULAR: Regular rate and rhythm. No murmurs. ABDOMEN: Soft. EXTREMITIES: Had no edema. Dorsalis pedis pulse 2+ bilaterally. SKIN: Cool and dry. NEUROLOGIC: Nonfocal. RADIOLOGICAL DATA: His ECG on admission showed atrial fibrillation with rapid ventricular response rate. Currently, he appears to be in sinus bradycardia, nonspecific T-wave changes. His workup, he had an echocardiogram done a year ago that showed ejection fraction of 50%, left atrial enlargement, aortic sclerosis. LABORATORY WORK: Sodium 142, potassium 3.8, creatinine 1.1. Liver function studies were normal. Troponin 0.06. His white blood cell count 8.3, hemoglobin 13.9. IMPRESSION AND RECOMMENDATIONS: 1. Paroxysmal atrial fibrillation. The patient converted to sinus rhythm. Previous episode. Because of his bradycardia, I would recommend discontinuing beta mitch. I would consider starting the patient on propafenone. I would consider anticoagulation. 2. Previous stents. No recent angina. Since the patient is now anticoagulated, I would stop aspirin and Plavix. 3. Hyperlipidemia. The patient is on a statin drug. 4. Hypertension. The patient is on an RIANA inhibitor. 5. Snoring at night. I would consider sleep apnea. 6. Obesity. Recommend diet and exercise. 7. Chronic back pain. <ELECTRONICALLY SIGNED> By: Michael Cornejo MD, [facility] 07/22/19 1603 0847 0930David Yaneli Cornejo MD, [facility] /nt
[2019-07-22 22:35] LABS: AMP/METHAMP Negative (Negative); BARBITURATES Negative (Negative); BENZODIAZEPINES Negative (Negative); COCAINE Negative (Negative); METHADONE Negative (Negative); OPIATES Negative (Negative); PCP Negative (Negative); THC Negative (Negative)
[2019-07-23 04:08] VITALS: BP 160/92
[2019-07-23 07:43] VITALS: BP 162/100
[2019-07-23] MEDS ORDERED: PROPAFENONE 15150 MG PO (12:21)
[2019-07-23] MEDS ORDERED: XARELTO20 MG PO (12:21)
[2019-07-23] MEDS ORDERED: ASPIR 8181 MG PO (13:05)
[2019-07-23 13:06] VITALS: BP 162/100
--- NOTE | 2019-07-25 14:18 | EKG ---
[place] [address] ELECTROCARDIOGRAM REPORT Name: ROBB JOAQUIN Room: [address] IN [facility]#: [id number] Admission: 07/21/19 Attend Phys: Alyssa barrientos Sa Discharge: 07/23/19 Date of : 60 Date of Service: 07/23/19 0827 Report #: [id number] THIS REPORT FOR: //name// [facility] Test Date: 2019-07-23 Test Time: 08:27:08 Pat Name: ROBB JOAQUIN Department: Room: [address] Gender: M Msw: : 1960 Requested By: Michael Cornejo Order Number: [id number] Celso MD: Edi Leblanc Measurements Intervals [place] Rate: 45 P: 29 NV: 220 QRS: 16 QRSD: 136 T: 134 QT: 478 QTc: 414 Interpretive Statements Sinus bradycardia Prolonged NV interval Nonspecific intraventricular conduction delay Inferior infarct, old Compared to ECG 07/22/2019 06:39:47 First degree AV block now present Possible ischemia no longer present Myocardial infarct finding still present Electronically Signed On 07-25-2019 14:16:39 CDT by Edi Leblanc [email or web address] <ELECTRONICALLY SIGNED> By: Edi Leblanc MD, [facility] 07/25/19 1416 6 6 Edi Leblanc MD, [facility] /EPI
== END 2019-07-23 13:20 | disposition home or self-care (01) | DRG 309 ==
LOC: M.ERS 19:10 → M.TBA-ER 19:41 → M.2W 19:41
PROVIDERS: ADMIT Family Medicine
DX: I48.0 Paroxysmal atrial fibrillation (principal); D68.59 Other primary thrombophilia; E78.5 Hyperlipidemia, unspecified; E66.9 Obesity, unspecified; G89.29 Other chronic pain; M54.9 Dorsalgia, unspecified; Z96.652 Presence of left artificial knee joint; I25.10 Atherosclerotic heart disease of native coronary artery without angina pectoris; Z68.41 Body mass index [BMI] 40.0-44.9, adult; Z95.5 Presence of coronary angioplasty implant and graft; Z90.49 Acquired absence of other specified parts of digestive tract; Z82.49 Family history of ischemic heart disease and other diseases of the circulatory system

== ENCOUNTER 2019-10-10 15:39 | Inpatient (IN) | payer MEDICAID ==
[~2019-10-10] VITALS: Ht 167.6 cm; Wt 128.4 kg
[2019-10-10] VITALS (14 sets, daily range): BP systolic 94–166; BP diastolic 48–87
[~2019-10-10 15:39] MED LIST changes: +LISINOPRIL40 MG PO; +PROPAFENONE 15150 MG PO; +XARELTO20 MG PO
[2019-10-10] MEDS ORDERED: SUPER THERAVIT1 EACH PO (18:29)
--- NOTE | 2019-10-10 19:46 | NUR ---
ASSESSMENT CHARTED IN ADMISSION. CATH SITE C/D&I. VITAL SIGNS ARE STABLE. NO COMPLAINTS. PATIENT HAS NOT VOIDED YET POST CARDIAC CATH. WILL CONTINUE TO MONITOR. NO COMPLAINTS OF CHEST PAIN.
[2019-10-11] VITALS (35 sets, daily range): BP systolic 135–186; BP diastolic 64–96
--- NOTE | 2019-10-11 04:59 | NUR ---
VITALS STABLE, AFEBRILE. PT OFF BEDREST AT 0130. ABLE TO EAT DINNER. 1000 CC UOP, NO BM. ACCESS SITE CLEAN, DRY AND INTACT. PT DENIES PAIN. SLEPT THROUGH MOST OF THE NIGHT. CALL LIGHT WITHIN REACH. ABLE TO TURN SELF IN BED. WILL CONTINUE MONITORING.
[2019-10-11 06:03] LABS: HEMATOCRIT 39.1 % (42.0-52.0); HEMOGLOBIN 12.9 gm/dL (14.0-18.0); MCH 27.1 pg (26.0-34.0); MCV 82.1 fL (80.0-100.0); RBC 4.76 mil/uL (4.50-6.00); RDW-CV 14.8 % (10.5-14.5); WBC 7.4 thou/uL (4.0-11.0)
[2019-10-11 06:22] LABS: ALBUMIN 3.3 g/dL (3.4-5.0); ALKALINE PHOSPHATASE 98 U/L (46-116); ANION GAP 9 mmol/L (7-16); BUN 14 mg/dL (7-18); CALCIUM 8.2 mg/dL (8.5-10.1); CHLORIDE 103 mmol/L (98-107); CHOLESTEROL 110 mg/dL (<200); CO2 26 mmol/L (21-32); CREATININE 1.1 mg/dL (0.6-1.3); GLUCOSE 177 mg/dL (70-99); HDL CHOLESTEROL 34 mg/dL (>40); LDL CHOLESTEROL 54 mg/dL (<100); POTASSIUM 3.3 mmol/L (3.5-5.1); SGOT 87 U/L (15-37); SGPT 43 U/L (30-65); SODIUM 138 mmol/L (136-145); TC:HDL 3.2 Ratio (Not establshd); TOTAL PROTEIN 6.5 g/dL (6.4-8.2); TRIGLYCERIDE 112 mg/dL (<150); VLDL 22 mg/dL (<40)
[2019-10-11 06:25] LABS: SERUM ASSESSMENT Clear
--- NOTE | 2019-10-11 09:41 | EKG ---
[place] [address] ELECTROCARDIOGRAM REPORT Name: ROBB JOAQUIN Room: [address] IN [facility].#: [id number] Admission: 10/10/19 Attend Phys: Jagdish Alcantar, Discharge: Date of : 60 Date of Service: 10/10/[address] 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 : 1960 Requested By: Edi Leblanc Order Number: [id number] Celso MD: Oscar Thomas Measurements Intervals [place] Rate: 54 P: 38 HI: 208 QRS: 36 QRSD: 140 T: 124 QT: 473 QTc: 449 Interpretive Statements Sinus rhythm Borderline prolonged HI interval Nonspecific intraventricular conduction delay Inferior infarct, old Compared to ECG 07/23/2019 08:27:08 Sinus bradycardia no longer present Myocardial infarct finding still present Electronically Signed On 10-11-2019 9:41:43 CDT by Oscar Thomas [email or web address] <ELECTRONICALLY SIGNED> By: Oscar Thomas MD, FACC 10/11/19 0941 1800 1800 Oscar Thomas MD, FAC /EPI
--- NOTE | 2019-10-11 10:33 | NUR ---
RE: HEART FAILURE MEDICATION INFORMATION I provided patient with a heart failure medication information handout. We discussed heart failure and lisinopril. All patients questions were answered. Pharmacy is available for any future questions. Thank you.
--- NOTE | 2019-10-11 11:36 | 2DMMODE ---
[place] [address] 2 D/M-MODE ECHOCARDIOGRAM Name: ROBB JOAQUIN Room: [address] IN [facility]#: [id number] Admission: 10/10/19 Attend Phys: Jagdish Alcantar, Discharge: Date of : 60 Date of Service: 10/11/19 1136 Report #: [id number] THIS REPORT FOR: cc: FAM - No family physician/PCP FAM - No family physician/PCP Oscar Thomas MD [facility] ~ APPROVED REPORT Study performed: 10/11/2019 10:20:30 EXAM: Comprehensive 2D, Doppler, and color-flow Echocardiogram Patient Location: In-Patient Room #: 007 Status: routine BSA: 2.29 HR: 59 bpm BP: 165/77 mmHg Rhythm: NSR Other Information Study Quality: Good Indications Acute IL 2D Dimensions IVSd: 13.36 (7-11mm) LVOT Diam: 20.05 (18-24mm) LVDd: 55.25 mm PWd: 12.19 (7-11mm) Ascending Ao: 37.84 (22-36mm) LVDs: 44.79 (25-40mm) Aortic Root: 36.58 mm Volumes Left Atrial Volume (Systole) LA ESV Index: 35.60 mL/m2 Aortic Valve AoV Peak Herb.: 1.83 m/s AO Peak Gr.: 13.44 mmHg LVOT Max P.13 mmHg AO Mean Gr.: 7.69 mmHg LVOT Mean P.49 mmHg LVOT Max V: 0.88 m/s AO V2 VTI: 36.65 cm LVOT Mean V: 0.56 m/s ERNESTO (VTI): 1.54 cm2 LVOT V1 VTI: 17.92 [place] [address] 2 D/M-MODE ECHOCARDIOGRAM Name: ROBB JOAQUIN Room: [address] IN [facility]#: [id number] Admission: 10/10/19 Attend Phys: Jagdish Alcantar, Discharge: Date of : 60 Date of Service: 10/11/19 1136 Report #: [id number] Mitral Valve E/A Ratio: 1.29 MV Decel. Time: 234.13 ms MV E Max Herb.: 0.70 m/s MV PHT: 67.90 ms MVA (PHT): 3.24 cm2 TDI E/Lateral E': 7.00 E/Medial E': 11.67 Medial E' Herb.: 0.06 m/s Lateral E' Hebr.: 0.10 m/s Pulmonary Valve PV Peak Herb.: 1.10 m/s PV Peak Gr.: 4.87 mmHg Left Ventricle The left ventricle is normal size. The basal inferoseptal wall is severely hypokinetic. Mild concentric left ventricular hypertrophy. Left ventricular systolic function is preserved. LVEF is 50-55%. The left ventricular diastolic function is normal. Right Ventricle The right ventricle is normal size. The right ventricular systolic function is normal. Atria Left atrium is mildly dilated. Right atrium is mildly dilated. Aortic Valve Mild aortic valve sclerosis. Trace aortic regurgitation. Mild aortic stenosis. Mitral Valve The mitral valve is normal in structure. There is no mitral valve regurgitation noted. No evidence of mitral valve stenosis. Tricuspid Valve The tricuspid valve is normal in structure. Unable to assess PA pressure. Trace tricuspid regurgitation. Pulmonic Valve The pulmonary valve is normal in structure. Trace pulmonic regurgitation[place] [address] 2 D/M-MODE ECHOCARDIOGRAM Name: ROBB JOAQUIN Dhruv Room: [address]#: [id number] Admission: 10/10/19 Attend Phys: Jagdish Alcantar, Discharge: Date of : 60 Date of Service: 10/11/19 1136 Report #: [id number] The aortic root is normal in size. IVC is normal in size and collapses >50% with inspiration. Pericardium There is no pericardial effusion. <Conclusion> The left ventricle is normal size. Mild concentric left ventricular hypertrophy. Left ventricular systolic function is preserved. LVEF is 50-55%. The left ventricular diastolic function is normal. The basal inferoseptal wall is severely hypokinetic. Left atrium is mildly dilated. Right atrium is mildly dilated. Mild aortic valve sclerosis. Trace aortic regurgitation. Mild aortic stenosis. Trace pulmonic regurgitation. Trace tricuspid regurgitation. IVC is normal in size and collapses >50% with inspiration. <ELECTRONICALLY SIGNED> By: Oscar Thomas MD, FACC 10/11/19 1136 1136 1136 Oscar Thomas MD, FACC /INF
--- NOTE | 2019-10-11 12:44 | CARD ---
[address] [address] CARDIAC CATH REPORT Name: ROBB JOAQUIN Room: [address] IN [facility]#: [id number] Admission: 10/10/19 Attend Phys: Jagdish Alcantar MD Discharge: Date of : 60 Report #: [id number] THIS REPORT FOR: //name// cc: AYDEN - No family physician/PCP AYDEN - No family physician/PCP ~ APPROVED REPORT Study performed: 10/10/2019 15:43:48 Patient Details Patient Status: In-Patient Room #: ICU 7 The patient is a 59 year-old male Event Personnel Edi Leblanc Field Support Technician, Michelle Echevarria RN Commercial Parts Professional, Abhishek Greenwood RN Commercial Parts Professional, Oliva Chen RTR Monitor, Miguel Garg RTR Scrub Procedures Performed Art Access - R femoral artery, Left Heart Cath w/or w/o Coronaries LHC, EDITH Place w/wo Plasty Single RCA , Hemostasis w/ Angioseal Indication STEMI Risk Factors Obesity, Hypercholesterolemia, Hypertension Previous Procedures/Diagnoses Previous PCI, Previous SD Admission/Lab Medications/Medications given during procedure Nitroglycerin IC 400 mcg total, Angiomax IV bolus 19 ml, Hydralazine (Apresoline) IV 20 mg total, Angiomax Drip IV 39.3 ml per hr, Effient PO 60 mg, Aspirin PO 162 mg Procedure Narrative The patient was brought emergently to the Cardiac Catheterization Laboratory and was prepped and draped in a sterile manner. The right femoral was infiltrated with 2% Lidocaine subcutaneous anesthesia. A 6F Ivor sheath was inserted into the right femoral artery. Coronary angiography was performed using coronary diagnostic catheters. The right coronary system was accessed [place] [address] CARDIAC CATH REPORT Name: ROBB JOAQUIN Room: [address]#: [id number] Admission: 10/10/19 Attend Phys: Jagdish Alcantar MD Discharge: Date of : 60 Report #: [id number] a 6F JR4 catheter. The left coronary system was accessed and visualized with a 6F JL4 catheter. The left ventricle was accessed and visualized with a 6F Straight Pigtail catheter. Left ventricular/Aortic Valve gradient assessed via catheter pullback. Pre-demployment femoral angiogram was performed . Closure device was deployed with a 6 Fr Angioseal STS. The patient tolerated the procedure well and there were no complications associated with the procedure. There was no hematoma. Intraoperative Conscious Sedation No sedation given. Procedure start time: 16:23. Procedure end time: 17:08. Fluoro Time: 8.9 minutes Dose: DAP [id number] cGycm2 2493 mGy Contrast Type and Amount: Visipaque 200 ml Diagnostic Cath Left Main 10% distal narrowing LAD 40% mid LAD narrowing with a widely patent first diagonal stent Circumflex 40% mid circumflex narrowing with a widely patent first marginal stent Right Coronary 30% proximal 40% mid and 90% distal right coronary stenosis, the latter being an in-stent lesion Left Ventriculography Left Ventriculography was not performed. Hemodynamics The aortic pressure is 219/103 mmHg with a mean of 130 mmHg. The left ventricular pressure is 113/1 mmHg with a mean of mmHg. The left ventricular end diastolic pressure is 11 mmHg. PCI Technique Lesion Anticoagulation was achieved with Angiomax. Patient was preloaded with Angiomax IV bolus 19 ml. Percutaneous coronary intervention was performed on the distal right coronary artery. The lesion stenosis prior to intervention was 90% with ROSENDA 2-3 flow. A 6F JR 3.5 Guide Catheter was used to engage the right ostium. A BMW 190cm Interventional Guidewire was used to cross the lesion. BALLOON DILATION A Balloon catheter NC Euphora 2.25x 12 was inserted and inflated up to 20.00atm for 21seconds. A Balloon catheter NC Euphora 2.5 x 12 was inserted and inflated up to 16 ivanna for 11 [place] [address] CARDIAC CATH REPORT Name: ROBB JOAQUIN Room: [address] IN .R.#: [id number] Admission: 10/10/19 Attend Phys: Jagdish Alcantar MD Discharge: Date of : 60 Report #: [id number] Inflation: 20 ivanna for 9 seconds. STENT DEPLOYMENT A drug-eluting stent [place] RX Stent 2.5X12mm was inserted and inflated up to 14.00atm for 13seconds. Additional Inflation: 15.00atm for 9seconds. Final angiography reveals 0 % stenosis with ROSENDA 3 flow. Conclusion 1. Significant coronary artery disease characterized by the following: A 30% proximal 40% mid and 90% distal right coronary stenosis, the latter being an in-stent lesion with ROSENDA II-III flow to the distal right coronary artery B 40% mid LAD narrowing with a widely patent first diagonal stent C 40% mid circumflex narrowing with a widely patent first marginal stent 2. Moderately severe systemic systolic hypertension at the beginning of the procedure; this was moderated by administration of intracoronary nitroglycerin and IV hydralazine 3. Successful PCI with deployment of a drug-eluting stent at the site of 90% distal right coronary stenosis with 0% residual narrowing and ROSENDA-3 flow to the distal vessel Recommendations Aggressive Medical Therapy Medications Administered Aspirin (any) Prasugrel Diagnostic Cath Approved by: Edi Leblanc MD Date/Time: 10/11/2019 12:42:52 <ELECTRONICALLY SIGNED> By: Edi Leblanc MD, [facility] 10/11/19 1243 1243 1243Edi Leblanc MD, FACC /INF
--- NOTE | 2019-10-11 13:23 | NUR ---
ICU ROUNDS: Cath yesterday. Pt resides at home with mom. Independent. No DME. No hx of HH or SNF. [facility] cardiac rehab nurse. Goal is home.
--- NOTE | 2019-10-11 16:01 | EKG ---
[place] [address] ELECTROCARDIOGRAM REPORT Name: ROBB JOAQUIN Room: [address] IN [facility].#: [id number] Admission: 10/10/19 Attend Phys: Jagdish Alcantar, Discharge: Date of : 60 Date of Service: 10/11/19 0807 Report #: [id number] THIS REPORT FOR: //name// [facility] Test Date: 2019-10-11 Test Time: 08:07:57 Pat Name: ROBB JOAQUIN Department: Room: [address] Gender: M Spiritual Advisor: : 1960 Requested By: Edi Leblanc Order Number: [id number] Reading MD: Edi Leblanc Measurements Intervals [place] Rate: 53 P: 49 TN: 224 QRS: 39 QRSD: 144 T: 177 QT: 499 QTc: 469 Interpretive Statements Sinus rhythm Prolonged TN interval Nonspecific intraventricular conduction delay Inferior infarct, evolved Abnrm T, consider ischemia, anterolateral lds Compared to ECG 10/10/2019 18:00:56 Possible ischemia now present Myocardial infarct finding still present Electronically Signed On 10-11-2019 16:01:50 CDT by Edi Leblanc [email or web address] <ELECTRONICALLY SIGNED> By: Edi Leblanc MD, [facility] 10/11/19 1601 0807 0807 Edi Leblanc MD, FAC /EPI
--- NOTE | 2019-10-11 23:58 | NUR ---
RECEIVED REPORT AND ASSUMED CARE AT 1900.VSS. CARDIAC MONITORING IN PLACE. PT DENIES COMPAINTS OF PAIN. ASSESSMENT COMPLETED CHARTED. PT UP SBA IN ROOM, ON RA. R GROIN SITE C/D/I, NO SIGN OF HEMATOMA. MEDICATION PER EMAR. BED LOCKED IN LOWEST POSITION, CALL LIGHT WITHIN REACH, BED ALARM ON.
[2019-10-12 00:44] VITALS: BP 148/82
[2019-10-12 04:34] VITALS: BP 119/69
[2019-10-12 08:00] VITALS: BP 166/75
[2019-10-12 09:32] VITALS: BP 166/75
[2019-10-12] MEDS ORDERED: EFFIENT10 MG PO (10:02)
[2019-10-12] MEDS ORDERED: NITROGLYCERIN0.4 MG SUBLING (10:03)
--- NOTE | 2019-10-12 10:53 | CON ---
[address] [address] CONSULTATION Name: ROBB JOAQUIN Room: [address] IN [facility].#: [id number] Admission: 10/10/19 Attend Phys: Edi Leblanc MD, Discharge: Date of : 60 Report #: [id number] THIS REPORT FOR: //name// cc: AYDEN Barnett family physician/PCP AYDEN Barnett family physician/PCP ~ THIS REPORT FOR: //name// CC: Jagdish Alcantar FAM physician/PCP Edi Leblanc DATE OF SERVICE: 10/10/2019 CARDIOLOGY CONSULTATION HISTORY OF PRESENT ILLNESS: The patient is a pleasant 59-year-old male with aggressive and premature coronary artery disease with underlying hypertension, diabetes, hyperlipidemia and weight excess. There is a history of prior inferior wall myocardial infarction and prior stenting of the right coronary artery, circumflex and prominent diagonal branch of the left anterior descending, the latter procedure being in 07/2018. Today, he was doing some work and fell over a wheelbarrow. He developed chest pain and was evaluated at [facility] where he was demonstrated to have anterior ST segment elevation compatible with acute inferior wall ST segment elevation myocardial infarction. Pain persisted despite heparin and aspirin and nitrates and he was transferred to us by [facility]. PHYSICAL EXAMINATION: GENERAL: On arrival in the Emergency Room, he had a moderated, but persistent chest discomfort. VITAL SIGNS: Blood pressure was elevated at 210/105, pulse rate was 64, respirations are 18 per minute. NECK: Jugular venous pressure was difficult to ascertain. CHEST: Clear anteriorly. CARDIAC: Revealed normal first and second heart sounds with an S4 gallop. ABDOMEN: Markedly obese. EXTREMITIES: Reveals intact femoral, pedal and radial pulses. He was taken to the [facility] and cardiac catheterization demonstrated significant coronary artery disease characterized by the following: A 90% distal right coronary stenosis within a stent with ROSENDA 2-3 flow of the distal vessel, 40% mid LAD narrowing [place] [address] CONSULTATION Name: ROBB JOAQUIN Room: [address] IN [facility].#: [id number] Admission: 10/10/19 Attend Phys: Edi Leblanc MD, Discharge: Date of : 60 Report #: [id number] branch of the circumflex and widely patent stent in the diagonal branch of the left anterior descending. I proceeded with percutaneous coronary intervention, deploying one 2.5 x 12 mm [place] drug-eluting stent in the distal right coronary artery with 0% residual narrowing and ROSENDA 3 flow of the distal vessel. The patient's pain remitted and that is electrocardiographic changes. IMPRESSION: 1. Acute inferior wall ST segment elevation myocardial infarction. 2. Status post percutaneous coronary intervention of the right coronary artery. 3. Hypertension with pressure moderated with IV nitroglycerin, IV hydralazine in the [facility]. 4. Exogenous obesity. 5. Gout. 6. Diabetes. 7. Hyperlipidemia. RECOMMENDATIONS: 1. Percutaneous coronary intervention as described above. 2. Continue the dual antiplatelet therapy with aspirin and Effient started. 3. With history of atrial fibrillation, I would consider resumption of Xarelto, but not in this early phase with the use of Angiomax and dual-antiplatelet therapy commenced. Thank you for allowing us to see the patient. Forty minutes of critical care time from 1730-3985 on 10/10/2019. The patient going to ICU 7. <ELECTRONICALLY SIGNED> By: Edi Leblanc MD, FACC 10/12/19 1053 1739 1959Edi Leblanc MD, FACC /nt
--- NOTE | 2019-10-12 10:53 | D ---
[address] [address] DISCHARGE SUMMARY Name: ROBB JOAQUIN Room: [address] IN .R.#: [id number] Admission: 10/10/19 Attend Phys: Edi Leblanc MD, Discharge: Date of : 60 Report #: [id number] THIS REPORT FOR: //name// cc: AYDEN Dennis No family physician/PCP AYDEN - No family physician/PCP ~ THIS REPORT FOR: //name// CC: Jagdish Alcantar FAM physician/PCP Micky Leblanc DATE OF SERVICE: 10/12/2019 FINAL DISCHARGE DIAGNOSES: 1. Acute inferior wall ST segment elevation myocardial infarction. 2. Status post percutaneous coronary intervention with stenting of distal right coronary artery. 3. Hypertension. 4. Hyperlipidemia. 5. Paroxysmal atrial fibrillation. 6. Exogenous obesity. PROCEDURES: 10/10/2019 - left heart catheterization, selective coronary arteriography, percutaneous coronary intervention with deployment of drug-eluting stent in the distal right coronary artery. The patient is a very pleasant 59-year-old male with complex coronary artery disease, status post remote myocardial infarction and multiple PCIs to the right coronary artery, LAD and circumflex. This past Thursday he fell over a wheelbarrow and developed chest discomfort. He presented to [facility], was noted to have inferior wall ST segment elevation compatible with inferior wall ST segment elevation myocardial infarction. He continued to have pain despite heparin, aspirin, nitrates and was transferred to us by [facility]. He continued to have chest pain in the ER and was emergently taken to the catheterization suite. He underwent cardiac catheterization, which revealed 90% distal right coronary stenosis with ROSENDA 2-3 flow of the distal right coronary artery. There were no significant stenosis of the left main, LAD and circumflex with widely patent first diagonal and the first marginal stents. Given this data, I performed percutaneous coronary intervention, deploying one 2.5 x 12 mm Lb drug-eluting stent in the distal right coronary artery with 0% residual narrowing, ROSENDA 3 flow of the distal vessel, [place] [address] DISCHARGE SUMMARY Name: ROBB JOAQUIN Room: [address] IN [facility].#: [id number] Admission: 10/10/19 Attend Phys: Edi Leblanc MD, Discharge: Date of : 60 Report #: [id number] Troponin peaked at 15.3. He did well post-procedurally and there was no recurrent chest discomfort. He had good hemostasis at the right femoral site of catheterization. LABORATORY DATA: On 10/10 revealed sodium 138, potassium 4.1, BUN 14, creatinine 1.1, glucose 177. Hemoglobin 12.9, hematocrit 39.1, white blood cell count 7400. DISCHARGE MEDICATIONS: The patient was discharged to home in stable condition on the following medications: Allopurinol 100 mg daily, aspirin 81 mg daily, atorvastatin 40 mg daily, lisinopril 40 mg daily, multivitamin with minerals 1 tablet daily, pantoprazole 40 mg daily, propafenone 150 mg t.i.d., and prasugrel or Effient 10 mg daily with a 60 mg periprocedural dose. The patient had been on Xarelto for paroxysmal atrial fibrillation, but this was not resumed in the context of the risk related to triple anticoagulant therapy. When I see him in 6-8 weeks, we will plan to discontinue the aspirin and resume Xarelto. Of note, he demonstrated no atrial fibrillation during the hospitalization. Therefore, the patient was discharged to home in stable condition on the aforementioned medications with followup with myself in 6-8 weeks in the [facility] office. We will arrange followup with our nurse practitioner in 7-10 days. Discharge summary time is 35 minutes from 09:10 to 09:45. <ELECTRONICALLY SIGNED> By: Edi Leblanc MD, FACC 10/12/19 1053 0944 [id number] Leblanc MD, FACC /nt
[2019-10-12 11:09] VITALS: BP 153/80
[2019-10-12 11:20] VITALS: BP 153/80
--- NOTE | 2019-10-12 12:30 | NUR ---
ASSESSMENT CHARTED. VSS THROUGHOUT SHIFT. NO COMPLAINTS OF PAIN. DISCHARGE PAPERWORK GONE OVER WITH PATIENT. AWAITING RIDE FROM HIS MOTHER. NO EVENTS DURING THIS SHIFT.
--- NOTE | 2019-10-12 14:21 | NUR ---
PT DISCHARGED HOME AT 1400.
== END 2019-10-12 14:22 | disposition home or self-care (01) | DRG 247 ==
LOC: M.2W 15:39 → M.ICU 15:57 → M.TBA-CV 16:14 → M.ICU 16:14
PROVIDERS: ADMIT Internal Medicine; ATTEND Internal Medicine
PROC: 4A023N7 Measurement of Cardiac Sampling and Pressure, Left Heart, Percutaneous Approach (ICD-10-PCS; principal; 2019-10-10)
PROC: B41FYZZ Fluoroscopy of Right Lower Extremity Arteries using Other Contrast (ICD-10-PCS; principal; 2019-10-10)
PROC: B211YZZ Fluoroscopy of Multiple Coronary Arteries using Other Contrast (ICD-10-PCS; principal; 2019-10-10)
PROC: 027034Z Dilation of Coronary Artery, One Artery with Drug-eluting Intraluminal Device, Percutaneous Approach (ICD-10-PCS; principal; 2019-10-10)
DX: I21.19 ST elevation (STEMI) myocardial infarction involving other coronary artery of inferior wall (principal); I10 Essential (primary) hypertension; E78.5 Hyperlipidemia, unspecified; I48.0 Paroxysmal atrial fibrillation; E66.09 Other obesity due to excess calories; E11.9 Type 2 diabetes mellitus without complications; M10.9 Gout, unspecified; Z68.42 Body mass index [BMI] 45.0-49.9, adult

== ENCOUNTER 2020-06-09 01:24 | Inpatient (IN) | payer MEDICARE, MEDICAID ==
[2020-06-09] VITALS (38 sets, daily range): BP systolic 114–192; BP diastolic 60–98
[~2020-06-09] VITALS: Ht 180.3 cm; Wt 118.8 kg
[~2020-06-09 01:24] MED LIST changes: +EFFIENT10 MG PO; +NITROGLYCERIN0.4 MG SUBLING; +SUPER THERAVIT1 EACH PO
[2020-06-09 05:19] LABS: HEMATOCRIT 38.9 % (42.0-52.0); HEMOGLOBIN 12.3 gm/dL (14.0-18.0); MCH 25.9 pg (26.0-34.0); MCHC 31.6 g/dL (28.0-37.0); MCV 81.9 fL (80.0-100.0); MPV 7.7 fl. (7.2-11.1); RBC 4.75 mil/uL (4.50-6.00); RDW-CV 16.8 % (10.5-14.5); WBC 5.5 thou/uL (4.0-11.0)
[2020-06-09 05:44] LABS: CALCIUM 8.9 mg/dL (8.5-10.1); CREATININE 1.1 mg/dL (0.6-1.3)
[2020-06-09 08:00] LABS: CHOLESTEROL 140 mg/dL (<200); HDL CHOLESTEROL 45 mg/dL (>40); LDL CHOLESTEROL 82 mg/dL (<100); SERUM ASSESSMENT Clear; TC:HDL 3.1 Ratio (Not establshd); TRIGLYCERIDE 66 mg/dL (<150); VLDL 13 mg/dL (<40)
[2020-06-10] VITALS (14 sets, daily range): BP systolic 131–179; BP diastolic 80–94
[2020-06-10] MEDS ORDERED: METOPROLOL SUCC25 M1 PO (07:17)
[2020-06-10] MEDS ORDERED: NORVASC5 MG PO (07:17)
--- NOTE | 2020-06-10 13:55 | EKG ---
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 : 1960 Requested By: Mariama Huynh Order Number: [id number] Reading MD: Oscar Thomas Measurements Intervals [place] Rate: 50 P: 38 OR: 225 QRS: 17 QRSD: 164 T: -42 QT: 514 QTc: 469 Interpretive Statements Sinus rhythm Prolonged OR interval Right bundle branch block inferior infarct, age indeterminate Compared to ECG 10/11/2019 08:07:57 Possible ischemia no longer present Myocardial infarct finding still present Electronically Signed On 06-10-2020 13:55:09 CDT by Oscar Thomas [email or web address] <ELECTRONICALLY SIGNED> By: Oscar Thomas MD, FACC 06/10/20 1355 043 043 Oscar Thomas MD, FACC /EPI
--- NOTE | 2020-06-11 12:21 | EKG ---
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 : 1960 Requested By: Martínez Bo Order Number: [id number] Reading MD: Michael Cornejo Measurements Intervals [place] Rate: 42 P: 0 SD: 202 QRS: -28 QRSD: 156 T: -29 QT: 533 QTc: 446 Interpretive Statements junctional rhythm Right bundle branch block Inferior infarct, old Lead(s) II were not used for morphology analysis Baseline wander in lead(s) V6 Compared to ECG 10/11/2019 08:07:57 Right bundle-branch block now present Sinus rhythm no longer present Possible ischemia no longer present Myocardial infarct finding still present Electronically Signed On 06-11-2020 12:20:51 CDT by Michael Cornejo [email or web address] <ELECTRONICALLY SIGNED> By: Michael Cornejo MD, [facility] 06/11/20 1220 1458 1458 Michael Cornejo MD, [facility] /EPI
--- NOTE | 2020-06-18 10:29 | CON ---
[address] [address] CONSULTATION Name: ROBB JOAQUIN Room: [address] IN ..#: [id number] Admission: 06/09/20 Attend Phys: Mariama Huynh MD Discharge: 06/10/20 Date of : 60 Report #: [id number] THIS REPORT FOR: cc: Micky Gonzalez MD,Micky Leblanc,Edi Wilcox MD [facility] ~ DATE OF SERVICE: 06/09/2020 CARDIOLOGY CONSULTATION HISTORY OF PRESENT ILLNESS: The patient is a very pleasant 60-year-old male with complex coronary artery disease, status post a prior myocardial infarctions and multiple PCIs, most recently to the right coronary artery. He had done well when I last saw him in the office 2 weeks ago. Yesterday evening in the early evening hours, he developed chest pain similar to his prior angina with associated nausea and diaphoresis. He took nitrates at home. He went to the [facility]. An EKG there revealed prominent inferior T-wave inversions, which remitted after administration of nitrates. The patient was transferred to us by ambulance and is having only mild residual discomfort at present. Troponin is within normal limits. He has underlying hypercholesterolemia, borderline diabetes and mild hypertension. He has been compliant with antiplatelet, antihypertensive, and lipid-lowering therapy without side effects of same. There is also a prior history of paroxysmal atrial fibrillation. PAST MEDICAL HISTORY: Remarkable for the aforementioned risk factors as described above, predominantly hypertension, hyperlipidemia and exogenous obesity. SOCIAL HISTORY: He is a former smoker. PHYSICAL EXAMINATION: GENERAL: Demonstrates not acutely distressed, overweight middle-aged male. VITAL SIGNS: Blood pressure is 125/70, pulse rate is 74, respirations are 18 per minute. NECK: Jugular venous pressure is normal. CHEST: Clear. CARDIAC: Reveals normal first and second heart sounds with a question [place] [address] CONSULTATION Name: ROBB JOAQUIN Dhruv Room: [address]#: [id number] Admission: 06/09/20 Attend Phys: Mariama Huynh MD Discharge: 06/10/20 Date of : 60 Report #: [id number] ABDOMEN: Obese without tenderness. EXTREMITIES: Without edema with an intact femoral, pedal and radial pulses. EKG at [facility] was described as revealing a prominent inferior T-wave inversion, which remitted after administration of nitrates. Since then, EKG has normalized and troponin is within normal limits. Renal function parameters and electrolytes and hemoglobin are acceptable. IMPRESSION: 1. Acute coronary syndrome, most consistent with unstable angina. 2. Coronary artery disease, status post remote myocardial infarction and multiple prior PCIs. 3. Hypertension. 4. Hyperlipidemia. 5. Exogenous obesity. RECOMMENDATIONS: Given the aforementioned clinical scenario, I would recommend urgent cardiac catheterization with definition of coronary anatomy and consideration of modification in therapy in response to the events yesterday, most consistent with unstable angina. The procedure and risks have been discussed with the patient. We will plan to proceed today 06/09/2020. Critical care time is 35 minutes from 10:45 to 11:20 on 06/09/2020. <ELECTRONICALLY SIGNED> By: Edi Leblanc MD, [facility] 06/18/20 1029 1124 [id number] Leblanc MD, FACC /nt
--- NOTE | 2020-06-18 11:46 | CARD ---
[address] [address] CARDIAC CATH REPORT Name: ROBB JOAQUIN Room: [address] IN [facility]#: [id number] Admission: 06/09/20 Attend Phys: Mariama Huynh MD Discharge: 06/10/20 Date of : 60 Report #: [id number] THIS REPORT FOR: cc: Micky Gonzalez MD, Gus MD Holkins, John M. MD [facility] ~ APPROVED REPORT Study performed: 06/09/2020 11:28:33 Patient Details Patient Status: In-Patient Room #: The patient is a 60 year-old male Event Personnel Edi Leblanc Engineer System Administrator, Lexie Abbott RN, Francisco Benton SANDING LINE OPERATOR Scrub, Carmita Benntet RTR Monitor, Oscar Thomas Lacrosse Coach Procedures Performed Art Access - R femoral artery Left Heart Cath w/or w/o Coronaries EDITH Place w/wo Plasty Single CIRC EDITH Place w/wo Plasty Addl BR OM 2 Hemostasis w/ Angioseal Indication Unstable angina Risk Factors Obesity, Hypercholesterolemia, Hypertension Previous Procedures/Diagnoses Previous PCI, Previous MS Admission/Lab Medications/Medications given during procedure Oxygen Nasal cannula 2 l per min, 0.9% Sodium Chloride IV 75 ml per hr, Fentanyl IV 25 mcg, Midazolam (Versed) IV 1 mg, Lidocaine Subcut 14 ml, Angiomax IV 19 ml, Angiomax Drip IV 43 ml per hr, Nitroglycerin IC 200 mcg, Effient PO 60 mg, Versed IV 1 mg Procedure Narrative The patient was brought urgently to the Cardiac Catheterization Laboratory and was prepped and draped in a sterile manner. The right femoral was infiltrated with 2% Lidocaine subcutaneous anesthesia. IV conscious sedation was used [place] [address] CARDIAC CATH REPORT Name: ROBB JOAQUIN Room: [address]#: [id number] Admission: 06/09/20 Attend Phys: Mariama Huynh MD Discharge: 06/10/20 Date of : 60 Report #: [id number] monitoring and was performed in the presence of a registered nurse who was an independent trained observer other than the physician performing the procedure. A [place] 6 FR sheath was inserted into the right femoral artery. Coronary angiography was performed using coronary diagnostic catheters. The right coronary system was accessed and visualized with a Diagnostic 6 Fr JR 4 catheter. The left coronary system was accessed and visualized with a Diagnostic 6 Fr JL 4 catheter. The left ventricle was accessed and visualized with a Diagnostic 6 Fr Pigtail catheter. Left ventricular/Aortic Valve gradient assessed via catheter pullback. Left ventriculogram was performed in HURST projection. Pre-demployment femoral angiogram was performed . Closure device was deployed with a Fr Angioseal STS 6Fr. The patient tolerated the procedure well and there were no complications associated with the procedure. There was no hematoma. Intraoperative Conscious Sedation Sedation start time: 12:13 Case end Time: 14:11 Fentanyl 50 mcg Versed 2 mg Fluoro Time: 36.5 minutes Dose: DAP [id number] cGycm2 6095 mGy Contrast Type and Amount: Visipaque 405 ml Diagnostic Cath Left Main The left main coronary artery is mildly plaque and bifurcates into a left anterior descending and circumflex coronary arteries. LAD The left anterior descending coronary artery has a widely patent stent in its mid to distal portion. The proximal vessel appears mildly plaqued. Diagonal 1 The first diagonal branch is a high rising diagonal with a proximal stent that is widely patent. Diagonal 2 The second diagonal branch is moderate in caliber and has a 50% proximal narrowing. Diagonal 3 A moderate sized branch to third diagonal branch is free of significant disease. Circumflex The circumflex coronary artery is moderately plaque with 60 -70% stenosis proximally. Mid and distal vessel appear free of significant disease. OM1 There is a widely patent stent at the ostium of the first obtuse marginal branch. OM2 There is a diffuse tubular 80% narrowing in the proximal portion of a moderate-sized second [place] [address] CARDIAC CATH REPORT Name: ROBB JOAQUIN Room: [address] IN [facility]#: [id number] Admission: 06/09/20 Attend Phys: Mariama Huynh MD Discharge: 06/10/20 Date of : 60 Report #: [id number] Right Coronary The right coronary artery is minimally plaqued in its proximal and midportion. Distally there is a widely patent stent. R PDA The PDA is minimally plaqued. RPLV The right posterior lateral branch is minimally plaqued. Left Ventriculography The left ventricle is normal in size with Mild to moderately decreased contractility. The left ventricular ejection fraction is estimated to be 45%. Left ventricular wall motion abnormalities are present. The basilar inferior wall appears hypo - akinetic. Hemodynamics The aortic pressure is 183/82 mmHg with a mean of 115 mmHg. The left ventricular pressure is 177/11 mmHg with a mean of mmHg. The left ventricular end diastolic pressure is 24 mmHg. PCI Technique Lesion Anticoagulation was achieved with Angiomax Drip. Patient was preloaded with Angiomax IV 19 ml. Percutaneous coronary intervention was performed on the second obtuse marginal branch segment. The lesion stenosis prior to intervention was 80% with ROSENDA 3 flow. A 6FR XB 3.5 100CM Guide Catheter was used to engage the left ostium. A IG: ProwaterFlex 180CM Interventional Guidewire was used to cross the lesion. BALLOON DILATION A Balloon catheter Mini Trek RX 2.0 X 12 was inserted and inflated up to 8.00atm for 7seconds. Additional Inflation: 8.00atm for 5seconds. Additional Inflation: 10.00atm for 10seconds. STENT DEPLOYMENT A drug-eluting stent Lb RX Stent 2.0X12mm was inserted and inflated up to 10.00atm for 6seconds. Additional Inflation: 10.00atm for 5seconds. A drug-eluting stent Lb RX Stent 2.0 X 8 mm was inserted and inflated up to 8 BALDEMAR for 6 seconds and 10 BALDEMAR for 4 seconds. Final angiography reveals 0 % stenosis with ROSENDA 3 flow. COMMENTS The PCI to the circumflex was technically complex by virtue of marked calcification and prior stent deployment making access to the distal circumflex difficult. We were able to achieve distal circumflex [facility] [address] [place] [address] CARDIAC CATH REPORT Name: ROBB JOAQUIN Room: [address] IN [facility].#: [id number] Admission: 06/09/20 Attend Phys: Mariama Huynh MD Discharge: 06/10/20 Date of : 60 Report #: [id number] access by placing a stent in the proximal circumflex and postdilating it with a 2.75 x 8 NC trek. This allowed access to the more distal second marginal branch of the circumflex with a deployment of 2 drug-eluting stents at that site. PCI Technique Lesion 2 Percutaneous Coronary Intervention was performed on the proximal circumflex artery segment. Patient was preloaded with Angiomax IV 19 ml. The lesion stenosis prior to intervention was 70% with ROSENDA 3 flow. A 6FR XB 3.5 100CM Guide Catheter was used to engage the left ostium. A IG: ProwaterFlex 180CM Interventional Guidewire was used to cross the lesion. Stent Deployment A drug-eluting stent [place] RX Stent 2.0X8mm was inserted and inflated up to 8.00atm for 9seconds. Additional Inflation: 12.00atm for 9seconds. Post Stent Deployment Balloon Dilation A Balloon catheter [place] Trek RX 2.75 X 8 was inserted and inflated up to 12.00atm for 8seconds. Additional Inflation: 15.00atm for 7seconds. Final angiography reveals 10 % stenosis with ROSENDA 3 flow. Conclusion 1. Three-vessel disease with widely patent stents as outlined above. 2. Acutely narrowed second obtuse marginal branch 3. Mild to moderate left ventricular systolic dysfunction, estimated ejection fraction 45% 4. Moderately elevated left ventricular end-diastolic pressure. 5. Successful PCI with deployment of 2 drug-eluting stents at the site of 80% tubular stenosis in the second marginal branch of the circumflex with 0% residual narrowing and ROSENDA-3 flow to the distal vessel 6. Successful PCI with deployment of a drug-eluting stent in the proximal circumflex with 10% residual narrowing and ROSENDA-3 flow to the distal vessel 6. Recommendations 1. Dual antiplatelet therapy for a minimum of 6 months. 2. Continue [place] [address] CARDIAC CATH REPORT Name: ROBB JOAQUIN Room: [address]#: [id number] Admission: 06/09/20 Attend Phys: Mariama Huynh MD Discharge: 06/10/20 Date of : 60 Report #: [id number] Medications Administered Aspirin (any) Prasugrel Diagnostic Cath Approved by: Oscar Thomas MD Date/Time: 06/18/2020 11:40:36 <ELECTRONICALLY SIGNED> By: Edi Leblanc MD, FAC 06/18/20 1145 1145 1145Edi Leblanc MD, FACC /INF
== END 2020-06-10 13:27 | disposition home or self-care (01) | DRG 246 ==
LOC: M.ICU 01:24
PROVIDERS: Internal Medicine; ADMIT Family Medicine; ATTEND Family Medicine
PROC: B211YZZ Fluoroscopy of Multiple Coronary Arteries using Other Contrast (ICD-10-PCS; principal; 2020-06-09)
PROC: 027136Z Dilation of Coronary Artery, Two Arteries with Three Drug-eluting Intraluminal Devices, Percutaneous Approach (ICD-10-PCS; principal; 2020-06-09)
PROC: 4A023N7 Measurement of Cardiac Sampling and Pressure, Left Heart, Percutaneous Approach (ICD-10-PCS; principal; 2020-06-09)
PROC: B215YZZ Fluoroscopy of Left Heart using Other Contrast (ICD-10-PCS; principal; 2020-06-09)
DX: I25.110 Atherosclerotic heart disease of native coronary artery with unstable angina pectoris (principal); I50.43 Acute on chronic combined systolic (congestive) and diastolic (congestive) heart failure; E78.00 Pure hypercholesterolemia, unspecified; I48.0 Paroxysmal atrial fibrillation; I11.0 Hypertensive heart disease with heart failure; E78.5 Hyperlipidemia, unspecified; E66.8 Other obesity; M10.9 Gout, unspecified; M19.90 Unspecified osteoarthritis, unspecified site; I45.9 Conduction disorder, unspecified; I25.2 Old myocardial infarction; Z68.36 Body mass index [BMI] 36.0-36.9, adult; Z87.891 Personal history of nicotine dependence; Z95.5 Presence of coronary angioplasty implant and graft; Z90.49 Acquired absence of other specified parts of digestive tract